=== PATIENT | female | born 1980 | race Caucasian/White ===

== ENCOUNTER 2017-07-21 19:07 | Emergency (ER) | payer SELFPAY ==
[2017-07-21] MEDS ORDERED: LORazepam 2 MG/ML VIAL ONE (19:33)
[2017-07-21] MEDS: LORazepam 2 MG/ML VIAL IM ONE (19:38)
--- NOTE | 2017-07-21 19:45 | ED Physician Documentation ---
General Adult - HISTORIAN Historian: patient, friend - HPI Stated Complaint: anxiety Chief Complaint: General Adult Additional Information: pt here w/boyfriend and 2 kids. he is lpt at [employer]. she has considerable anxiety crying. she works at [employer] went to work at 300am this am not slept since. Onset: days ago (progressive) Timing: worse ( wakes up in panic attack) Severity: moderate Further Comments: yes (at present she is begging boyfriend to not leave lh but she is concerned bacause 2 11 yr old kids are at hotel) - ROS CONST: other (anxiety and depression) EYES/ENT: none CVS/RESP: none GI/: none MS/SKIN/LYMPH: none. denies: swollen glands NEURO/PSYCH: anxiety, depression. denies: fainting - PAST HX Past History: other (untreated depression and anxiety) Surgeries/Procedures: , other (breast implants) Allergies/Adverse Reactions: Allergies Allergy/AdvReac Type Severity Reaction Status Date / Time No Known Allergies Allergy Verified 07/21/17 19:14 Home Medications: Ambulatory Orders Medication Instructions Recorded NK [NK] 07/21/17 - SOCIAL HX Smoking History: non-smoker Alcohol Use: none Drug Use: marijuana - FAMILY HX Family History: Yes (father w/kidney stones) - VITAL SIGNS Vital Signs: Vital Signs Temp Pulse Resp BP Pulse Ox 98.2 F 107 H 20 136/102 98 07/21/17 19:08 07/21/17 19:08 07/21/17 19:08 07/21/17 19:08 07/21/17 19:08 - REVIEWED ASSESSMENTS Nursing Assessment Reviewed: Yes Vitals Reviewed: Yes ED Results Lab/Radiology - Orders Orders: ED Orders Category Date Time Status LORazepam [Ativan] Med 07/21/17 19:22 Once 1 mg IM NOW ONE LORazepam [Ativan] Med 07/21/17 19:33 Discontinued 2 mg .ROUTE .STK-MED ONE General Adult Physical Exam - PHYSICAL EXAM GENERAL APPEARANCE: moderate distress EENT: No: eye inspection normal (crying speaks very low) NECK: normal inspection, thyroid normal RESPIRATORY: no resp distress, breath sounds normal CVS: reg rate & rhythm ABDOMEN: soft, non-tender BACK: normal inspection SKIN: warm/dry, normal color. No: cyanosis, diaphoresis, jaundice NEURO: oriented X3, motor nml, sensation nml, depressed mood/affect. No: mood/ affect nml Discharge Clincal Impression: PANIC ATTACK-DEPRESSION Referrals: Primary Doctor,No [Primary Care Provider] - 2 Days Comments: PT REMARKABLY IMPROVED AFTER ATIVAN AND BOYFRIEND CAME BY-SHE WAS GIVEN RX FOR 8 - 0.5 MG ATIVAN AND INSTRUCTED TO SEE PCP FOR F/U CARE WHEN RET TO HOME IN [place] Condition: Stable Disposition: 01 HOME, SELF-CARE Decision to Admit: NO Decision Time: 21:40
[2017-07-21 21:46] VITALS: BP 128/90
== END 2017-07-21 20:13 | disposition home or self-care (01) ==
LOC: ED 19:07
DX: F41.0 Panic disorder [episodic paroxysmal anxiety] (principal); F32.9 Major depressive disorder, single episode, unspecified
CPT/HCPCS: J2060 ×2; 96372; 99283